=== PATIENT | male | born 1995 | race Caucasian/White ===

== ENCOUNTER 2016-09-29 18:53 | Emergency (ER) | payer MEDICAID ==
[~2016-09-29] VITALS: Ht 190.5 cm; Wt 132.2 kg
[2016-09-29] MEDS ORDERED: ACETAMINOPHEN 325 MG TABLET ONE (20:44)
[2016-09-29 20:54] LABS: BLOOD UREA NITROGEN 12 mg/dL (7-18)
[2016-09-29] MEDS ORDERED: ACETAMINOPHEN 325 MG TABLET PO ONE (21:30)
[2016-09-29 21:56] VITALS: BP 139/89
== END 2016-09-29 22:10 | disposition home or self-care (01) ==
LOC: ED 21:30
DX: R04.2 Hemoptysis (principal)
CPT/HCPCS: 36415; 71020; 80048; 82040; 85025; 85610; 85730; 99285